=== PATIENT | male | born 1985 | race Caucasian/White ===

== ENCOUNTER → 2024-08-31 14:18 | Outpatient (BNVA) | payer MEDICAID, SELFPAY | PROVIDERS: Visit Provider Nurse Practitioner | DX: R05.9 Cough, unspecified (principal) | CPT/HCPCS: 71046 ==

== ENCOUNTER → 2024-09-06 14:22 | Outpatient (BNVA) | payer MEDICAID, SELFPAY | PROVIDERS: Visit Provider Nurse Practitioner | DX: R05.3 Chronic cough (principal) | CPT/HCPCS: 80053; 84443; 85025 ==